=== PATIENT | female | born 1960 | race Caucasian/White ===

== ENCOUNTER 2023-09-18 08:58 | Outpatient (RCR) | payer OTHER, SELFPAY | END 2023-09-18 23:59 | disposition home or self-care (01) | LOC: RPT 08:58 | PROVIDERS: ATTENDING PHYSICIAN Orthopaedic Surgery; PRIMARYCARE PHYSICIAN Nurse Practitioner | DX: Z47.1 Aftercare following joint replacement surgery (principal); Z96.651 Presence of right artificial knee joint | CPT/HCPCS: 97110; 97112; 97162 ==

== ENCOUNTER 2023-10-21 09:06 | Outpatient (RCR) | payer OTHER, SELFPAY | END 2023-10-21 23:59 | disposition home or self-care (01) | LOC: RPT 09:06 | PROVIDERS: ATTENDING PHYSICIAN Orthopaedic Surgery; PRIMARYCARE PHYSICIAN Nurse Practitioner | DX: Z47.1 Aftercare following joint replacement surgery (principal); Z96.651 Presence of right artificial knee joint | CPT/HCPCS: 97110; 97112 ==

== ENCOUNTER 2023-11-16 09:00 | Outpatient (RCR) | payer OTHER, SELFPAY | END 2023-11-16 23:59 | disposition home or self-care (01) | LOC: RPT 09:00 | PROVIDERS: ATTENDING PHYSICIAN Orthopaedic Surgery; PRIMARYCARE PHYSICIAN Nurse Practitioner | DX: Z47.1 Aftercare following joint replacement surgery (principal); Z73.6 Limitation of activities due to disability; R26.2 Difficulty in walking, not elsewhere classified; M62.81 Muscle weakness (generalized); Z96.651 Presence of right artificial knee joint | CPT/HCPCS: 97110; 97112 ==

== ENCOUNTER → 2024-10-07 15:06 | Outpatient (REF) | payer OTHER, SELFPAY | LOC: WDC 15:06 | PROVIDERS: ATTENDING PHYSICIAN Nurse Practitioner | DX: Z12.31 Encounter for screening mammogram for malignant neoplasm of breast (principal); E01.0 Iodine-deficiency related diffuse (endemic) goiter | CPT/HCPCS: 76536; 77063; 77067 ==

== ENCOUNTER → 2025-05-25 09:15 | Outpatient (REF) | payer OTHER, SELFPAY | LOC: RAD 09:15 | PROVIDERS: ATTENDING PHYSICIAN Internal Medicine Rheumatology; FAMILY PHYSICIAN Nurse Practitioner | DX: M19.012 Primary osteoarthritis, left shoulder (principal); M25.511 Pain in right shoulder; M25.512 Pain in left shoulder; M75.52 Bursitis of left shoulder | CPT/HCPCS: 73030 ==

== ENCOUNTER 2025-06-19 10:01 | Outpatient (RCR) | payer OTHER, SELFPAY | END 2025-06-19 23:59 | disposition home or self-care (01) | LOC: RPT 10:01 | PROVIDERS: ATTENDING PHYSICIAN Internal Medicine Rheumatology; FAMILY PHYSICIAN Nurse Practitioner | DX: M75.52 Bursitis of left shoulder (principal); M25.511 Pain in right shoulder; M54.2 Cervicalgia; Z73.6 Limitation of activities due to disability; M62.81 Muscle weakness (generalized) | CPT/HCPCS: 97110; 97162 ==

== ENCOUNTER 2025-07-20 09:50 | Outpatient (RCR) | payer OTHER, SELFPAY | END 2025-07-20 23:59 | disposition home or self-care (01) | LOC: RPT 09:50 | PROVIDERS: ATTENDING PHYSICIAN Internal Medicine Rheumatology; FAMILY PHYSICIAN Nurse Practitioner | DX: M75.52 Bursitis of left shoulder (principal); M25.511 Pain in right shoulder; M54.2 Cervicalgia; Z73.6 Limitation of activities due to disability; M62.81 Muscle weakness (generalized) | CPT/HCPCS: 97110 ==